=== PATIENT | male | born 1975 | race Caucasian/White ===

== ENCOUNTER 2019-02-07 06:51 | Day surgery (SDC) | payer OTHER | END 2019-02-07 11:10 | disposition home or self-care (01) | LOC: AMB-ENDOS 06:51 | DX: K52.89 Other specified noninfective gastroenteritis and colitis (principal); K64.1 Second degree hemorrhoids ==

== ENCOUNTER 2020-01-30 08:22 | Outpatient (CLI) | payer OTHER | END 2020-01-30 08:32 | disposition home or self-care (01) | LOC: RX STUDY 08:22 | PROVIDERS: ATTEND Internal Medicine Gastroenterology | DX: R13.19 Other dysphagia (principal) ==

== ENCOUNTER 2023-09-21 09:23 | Outpatient (CLI) | payer OTHER | END 2023-09-21 10:11 | disposition home or self-care (01) | LOC: TOM 09:23 | PROVIDERS: ATTEND Internal Medicine Gastroenterology | DX: K56.609 Unspecified intestinal obstruction, unspecified as to partial versus complete obstruction (principal); K51.90 Ulcerative colitis, unspecified, without complications ==